=== PATIENT | female | born 1985 | race Caucasian/White ===

== ENCOUNTER 2023-08-23 13:40 | Emergency (ER) | payer OTHER, SELFPAY ==
--- NOTE | ~2023-08-23 | CT_ITS ---
EXAMINATION: CT abdomen pelvis w con DATE: 08/23/2023 17:00 INDICATION: Right flank pain TECHNIQUE: Computed tomography (CT) of the abdomen and pelvis was performed with 100 cc Omnipaque 350 intravenous contrast. The dose-length product was 418.43 mGy-cm. Automated exposure control and iter ative reconstruction technique were employed. COMPARISON: None. FINDINGS: Lung bases unremarkable. Heart size normal. No significant pleural or pericardial effusion. Status post cholecystectomy. The liver, spleen, pancreas, adrenal glands and kidneys are unremarkabl e. Nonobstructive bowel gas pattern. There is a 2 cm corpus luteal cyst of the left ovary. No free ai r or free fluid. Small fat-containing umbilical hernia. Mild lumbar spondylosis. IMPRESSION: 1. No acute abdominal abnormality. Reviewed, dictated and finalized at location A.
[2023-08-23 13:41] VITALS: BP 165/90; PULSE 99; RESP 20; TEMP 36.8; O2SAT 98
[2023-08-23 16:40] LABS: Basophils Absolute Auto 0.1 K/mm3 (0.0-0.1); Basophils Percent Auto 0.5 % (0.2-1.2); Eosinophils Absolute Auto 0.4 K/mm3 (0-0.3); Eosinophils Percent Auto 2.9 % (0-4.4); Hematocrit 44.3 % (37.0-47.0); Immature Granulocyte Absolute 0.06 K/mm3 (0.00-0.031); Immature Granulocyte Percent A 0.4 % (0-0.5); Lymphocytes Absolute Auto 5.27 K/mm3 (0.9-3.2); Lymphocytes Percent Auto 36.1 % (18.3-44.2); Mean Corpuscular HGB Conc 33.9 g/dl (32-36); Mean Corpuscular Volume 97.4 fl (80-100); Mean Platelet Volume 10.4 fl (7.4-10.4); Monocytes Percent Auto 6.8 % (2.6-8.5); Neutrophils Absolute Auto 7.8 K/mm3 (1.3-6.7); Neutrophils Percent Auto 53.3 % (45.5-73.1); Platelet Count Result 313 k/mm3 (150-375); Red Blood Count 4.55 M/mm3 (4.2-5.4); Red Cell Distribution Width 13.9 % (11.5-14.5); White Blood Count 14.6 K/mm3 (4.5-10.0)
[2023-08-23 16:41] LABS: Appearance Urine Clear (Clear); Bilirubin Urine Negative (Negative); Blood Urine Negative (Negative); Color Urine Yellow (Yellow); Glucose Urine UA Negative (Negative); Ketones Urine Negative (Negative); Leukocyte Esterase Ur Negative LEU/UL (Negative); Nitrate Urine Negative (Negative); Protein Urine Negative (Negative); Specific Grav Ur 1.022 (1.001-1.035); pH Urine 6.5 (5.0-9.0)
[2023-08-23 16:49] LABS: Alanine Aminotransferase 25 U/L (6-35); Albumin Level 4.5 g/dL (3.5-5.1); Alkaline Phosphatase 68 U/L (38-126); Anion Gap 7 mmol/L (4-12); Aspartate Amino Transferase 21 U/L (14-36); Bilirubin,Total 0.4 mg/dL (0.2-1.3); Blood Urea Nitrogen 17 mg/dL (7-17); Carbon Dioxide 27 mmol/L (22-30); Chloride 105 mmol/L (98-107); Estimated CRCL calculation 71 ml/min; Estimated Glomerular Filt Rate > 60; Glucose 93 mg/dL (65-110); Potassium 4.1 mmol/L (3.4-5.0); Sodium 139 mmol/L (137-145)
[2023-08-23 16:51] LABS: Estimated CRCL calculation 64 ml/min; Estimated Glomerular Filt Rate > 60
[2023-08-23 16:55] LABS: Add Urine Microscopic? NO
--- NOTE | 2023-08-23 16:55 | ED.GENADULT ---
HPI - General Adult General Chief complaint: Skin/Abscess/Foreign Body Stated complaint: rash, back pain Time Seen by Provider: 08/23/23 15:40 History of Present Illness HPI narrative: Patient is a 38-year-old female who presents emergency department this afternoon complaining of right flank pain. Patient states that approximately 10 days ago she was seen in urgent care due to a rash all over her body. Patient was in [place] prior to this and states that she may have been exposed to something. No known allergies that she is aware of. Patient did present to an Urgent Care due to concern for poison ellyn, however, she was placed on the steroids and told to follow-up with her primary care physician. Rash does appear to be urticarial, does not appear as a poison ellyn rash. Patient states that today she started to develop right flank pain and was concerned that that may be related to the rash. She denies any history of kidney stones and is currently denying any urinary symptoms including dysuria or hematuria. Patient also denies any fevers or chills at home, any nausea, vomiting or abdominal pain. No chest pain or shortness of breath. No additional symptoms or concerns Related Data Allergies Allergy/AdvReac Type Severity Reaction Status Date / Time No Known Allergies Allergy Verified 08/23/23 13:45 Review of Systems Review of Systems: All systems are reviewed and are negative unless stated otherwise in the HPI. [facility] Family History Family History Father Family history of lymphoma Other Diabetes mellitus Family history of cardiovascular disease Family history of malignant neoplasm Social History Social History Alcohol intake: current Exam Narrative: General: Alert, awake, afebrile, in no acute distress. HEENT: PERRL, no rhinorrhea, no post nasal drip, oropharynx clear. Cardiovascular: Regular rate and rhythm, no murmurs, rubs or gallops, no peripheral edema. Respiratory: Clear to auscultation bilaterally, no tachypnea, no wheezing, no rhonchi, no rubs, no respiratory distress. Abdomen: Soft, nontender, nondistended, no rebound, no guarding, no peritoneal signs. Musculoskeletal: No joint swelling or deformity, normal muscle tone. Skin: No rashes or petechia, no signs of infection. Neurological: Alert and oriented to person, place, and time. Follows all commands. No focal deficits, speech is clear and fluent. Course Vital Signs Vital signs: Vital Signs Temperature 98.2 F 08/23/23 13:41 Pulse Rate 99 08/23/23 13:41 Respiratory Rate 20 08/23/23 13:41 Blood Pressure 165/90 H 08/23/23 13:41 Pulse Oximetry 98 08/23/23 13:41 Oxygen Delivery Room Air 08/23/23 13:41 Temperature 98.2 F 08/23/23 13:41 Pulse Rate 99 08/23/23 13:41 Respiratory Rate 20 08/23/23 13:41 Blood Pressure 165/90 H 08/23/23 13:41 Pulse Oximetry 98 08/23/23 13:41 Oxygen Delivery Room Air 08/23/23 13:41 Medical Decision Making MDM Narrative Medical decision making narrative: The patient was evaluated by myself in the emergency department. History is obtained from patient who is an independent historian and physical exam was performed. External medical records were reviewed at this time. IV was established and pertinent tests were ordered. Laboratory results obtained revealing a white blood cell count of 14, otherwise unremarkable. Urinalysis was unremarkable. Imaging studies obtained included CT abdomen and pelvis with IV contrast which was independently interpreted by me revealing no acute process, which is pending final radiology interpretation. This time, patient was administered a Lidoderm patch. Differential diagnosis considerations include acute pyelonephritis, nephrolithiasis and musculoskeletal strain. Comorbidities impacting this visit include none. I have evaluat
[2023-08-23] MEDS: SODIUM CHLORIDE 0.9% IV 1,000 ML 999 ML IV CONT (17:01)
[2023-08-23 18:05] VITALS: BP 138/76; PULSE 75; RESP 17; TEMP 36.7; O2SAT 98
== END 2023-08-23 18:07 | disposition home or self-care (01) ==
PROVIDERS: Emergency Provider Emergency Medicine
DX: R21 Rash and other nonspecific skin eruption (principal); R10.9 Unspecified abdominal pain
CPT/HCPCS: 36415; 74177; 80053; 81003; 81025; 85025; 96360; 99284; J7030; Q9967

== ENCOUNTER 2023-11-19 10:33 | Outpatient (CLI) | payer OTHER, SELFPAY ==
--- NOTE | ~2023-11-19 | MM_ITS ---
EXAMINATION: MM screening liseth BI w casandra HISTORY: Screening TECHNIQUE: Craniocaudal and mediolateral oblique 3-D tomosynthesis images were obtained and synthetic 2-D images were generated. CAD analysis was submitted and interpreted. COMPARISON: No prior mammogram is available for comparison at this institution. BREAST PARENCHYMAL COMPOSITION: Dense: The breasts are extremely dense, which lowers the sensitivity of mammography. FINDINGS: There is no evidence of suspicious mass, calcification, or architectural distortion to sugg est malignancy in either breast. There has been no suspicious interval change. IMPRESSION: 1. No mammographic evidence of malignancy. 2. Recommend routine screening mammography in one year. BI-RADS Category 1: Negative Reviewed, dictated and finalized at location B.
== END 2023-11-19 10:34 | disposition home or self-care (01) ==
LOC: ANHIMG 10:34
PROVIDERS: Visit Provider Obstetrics & Gynecology
DX: Z12.31 Encounter for screening mammogram for malignant neoplasm of breast (principal)
CPT/HCPCS: 77063; 77067